=== PATIENT | male | born 1995 | race Caucasian/White ===

== ENCOUNTER 2023-08-26 11:11 | Emergency (ER) | payer MEDICAID, SELFPAY ==
[~2023-08-26] VITALS: Ht 160 cm; Wt 58.6 kg
[2023-08-26 11:11] VITALS: BP 140/88; TEMP 98.1; O2SAT 98
== END 2023-08-26 12:56 | disposition left against medical advice (07) ==
LOC: M ED 11:11
DX: Z53.21 Procedure and treatment not carried out due to patient leaving prior to being seen by health care provider (principal)